=== PATIENT | female | born 1990 | race African-American/Black ===

== ENCOUNTER 2016-11-02 04:08 | Emergency (ER) | payer SELFPAY ==
--- NOTE | ~2016-11-02 | CT71 ---
[facility] A Service of [facility] RADIOLOGY TEXT RESULTS PATIENT: DESMOND CABRAL LOCATION: [facility] : 86 UNIT #: [id number] AGE: [address]: Gordo Ochoa MD SEX: F ORDER DR: [id number] [place], [place] [address] [id number] MR#: [id number] Acc #: [id number] NAME: DESMOND CABRAL : 1990 SEX: F STUDY DATE/TIME: 11/02/2016 3:31 UNIT: [facility] ROOM: STUDY DESCRIPTION: CT Head Wo Contrast Attending Physician: Gordo Ochoa M.D. Ordering Physician: Gordo Ochoa M.D. Primary Care Physician: Primary Care Physician No MEDICAL IMAGING REPORT This report is preliminary unless electronic signature is present EXAM CT head without contrast INDICATIONS Headache for the past 2 weeks with dizziness. PROCEDURE Unenhanced CT head. This CT exam was performed with one or more of the following radiation dose reduction techniques: automatic exposure control, adjustment of mA and/or kV according to patient size, and iterative reconstruction. COMPARISON None. FINDINGS No acute hemorrhage, abnormal mass effect, extraaxial collection or hydrocephalus. No calvarial fracture. Paranasal sinuses and mastoid air cells are clear. IMPRESSION No acute intracranial findings. Dictated by... Lenin Gaffney M.D. THIS IS AN ELECTRONICALLY VERIFIED REPORT Lenin Gaffney M.D. at 11/02/2016 10:24 PM EED/iris [facility] A Service of [facility] RADIOLOGY TEXT RESULTS PATIENT: DESMOND CABRAL LOCATION: [facility] : 86 UNIT #: [id number] AGE: [address]: Gordo Ochoa MD SEX: F ORDER DR: TD: 11/02/2016 04:59 JOB #: [id number] MEDICAL IMAGING REPORT Page 1 of 1 COPY
== END 2016-11-02 04:32 | disposition home or self-care (01) ==
LOC: CED 04:08
DX: R51 Headache (principal)
CPT/HCPCS: 70450; 84703; 99284